=== PATIENT | female | born 1950 | race Caucasian/White ===

== ENCOUNTER → 2016-09-28 | Outpatient (CLI) | payer OTHER ==
[~2016-09-28] VITALS: Ht 170.2 cm; Wt 73.9 kg
[~2016-09-28] MED LIST: BISM262T3 PO; DIPH25CA65 PO; IBUP-103 PO; MULT-506 PO; PSEU30TA20 PO; RXC5 PO; TRAM-10 PO
[2016-09-28 13:45] VITALS: Ht 170.2 cm; Wt 73.9 kg
--- NOTE | 2016-09-28 14:07 | PAT Medication Instructions ---
Service Date Sep 28, 2016. Current Home Medication List Pseudoephedrine (Sudafed), 30 MG PO DAILY PRN for PRN Tramadol (Ultram), 50-100 MG PO Q8H PRN for Pain Medication Instructions For Your Scheduled Surgery - Hold the following medications the morning of surgery: Pseudoephedrine (Sudafed), 30 MG PO DAILY PRN for PRN - Take the following medications the morning of surgery with a sip of water OTHERWISE NOTHING TO EAT OR DRINK AFTER MIDNIGHT: Tramadol (Ultram), 50-100 MG PO Q8H PRN for Pain (may take up to 4 hours prior to surgery if needed) If you have any questions please call us at [phone] or [phone] or [phone]
[2016-09-28 15:03] LABS: BASO % 0.6 %; BASO ABS # 0.04 K/uL (0-0.2); COMPLETE YES; EOS % 4.3 %; HEMATOCRIT 40.3 % (37-47); IG% 0.1 %; LYMPH % 26.7 %; LYMPH ABS # 1.78 K/uL (1.2-3.4); MEAN CELL VOLUME 86.7 fL (80-100); MEAN CORPUSCULAR HEMOGLOBIN 28.6 pg (25-34); MEAN PLATELET VOLUME 9.7 fL (7.4-10.4); MONO % 7.5 %; NEUT % 60.8 %; PLATELET COUNT 281 K/uL (130-400); RED BLOOD COUNT 4.65 M/uL (4.2-5.4); WHITE BLOOD COUNT 6.67 K/uL (4.8-10.8)
[2016-09-28 15:08] LABS: URINE APPEARANCE CLEAR (CLEAR); URINE BILIRUBIN NEG (NEG); URINE COLOR YELLOW; URINE EPITHELIAL CELL AUTO >30 /lpf (0-5); URINE NITRITE NEG (NEG); URINE PH 5.5 (4.5-7.5); URINE SPECIFIC GRAVITY 1.018 (1.000-1.030); UROBILINOGEN NEG (NEG)
[2016-09-28 15:11] LABS: BUN/CREATININE RATIO 12.3 (10-20); CALCIUM 9.3 mg/dl (8.5-10.1); CREATININE 0.87 mg/dl (0.60-1.20); POTASSIUM 3.8 mmol/L (3.5-5.1)
[2016-09-28 15:22] LABS: MANUAL MICROSCOPIC REQUIRED? NO; REVIEW REQ? NO
--- NOTE | 2016-10-14 07:30 | History & Physical Bridge Note ---
H&P Re-Evaluation Bridge Note: I have examined the patient, reviewed the History & Physical and in the interval since the performance of the History & Physical I have noted the following changes of clinical significance: No changes noted
== END ==
LOC: C.LAB 08:00 → EDSTATUS 10-14 12:15
PROVIDERS: ATTEND Orthopaedic Surgery Orthopaedic Surgery of the Spine
DX: Z01.810 Encounter for preprocedural cardiovascular examination (principal)

== ENCOUNTER 2017-03-03 05:53 | Inpatient (IN) | payer OTHER ==
[2017-01-25 12:06] VITALS: BMI 25.0
--- NOTE | 2017-01-25 12:29 | PAT Medication Instructions ---
Service Date Jan 25, 2017. Current Home Medication List Bismuth Subsalicylate (Pepto Bismol Chew Tab), 1 TAB PO PRN Diphenhydramine Hcl (Benadryl Allergy), 50 CAP PO PRN Multivitamin (Multivitamin), 2 TAB PO QPM Pseudoephedrine (Sudafed), 30 MG PO DAILY PRN for PRN Tramadol (Ultram), 50 MG PO Q8H PRN for Pain Medication Instructions For Your Scheduled Surgery - Hold the following medications the morning of surgery: Bismuth Subsalicylate (Pepto Bismol Chew Tab), 1 TAB PO PRN Diphenhydramine Hcl (Benadryl Allergy), 50 CAP PO PRN Pseudoephedrine (Sudafed), 30 MG PO DAILY PRN for PRN - Take the following medications the morning of surgery with a sip of water: Tramadol (Ultram), 50 MG PO Q8H PRN for Pain (okay to take up to 4 hours prior to surgery if needed) - Take the following medications as scheduled the night before surgery: Tramadol (Ultram), 50 MG PO Q8H PRN for Pain (if needed) Bismuth Subsalicylate (Pepto Bismol Chew Tab), 1 TAB PO PRN (if needed) Diphenhydramine Hcl (Benadryl Allergy), 50 CAP PO PRN (if needed) Multivitamin (Multivitamin), 2 TAB PO QPM Pseudoephedrine (Sudafed), 30 MG PO DAILY PRN for PRN (if needed) If you have any questions please call us at [phone] or [phone] or [phone]
[2017-01-25 13:08] LABS: HEMATOCRIT 45.9 % (37-47); MEAN CELL VOLUME 89.6 fL (80-100); MEAN CORPUSCULAR HEMOGLOBIN 28.3 pg (25-34); MEAN CORPUSCULAR HGB CONC 31.6 g/dl (32-36); MEAN PLATELET VOLUME 9.8 fL (7.4-10.4); PLATELET COUNT 330 K/uL (130-400); RED BLOOD COUNT 5.12 M/uL (4.2-5.4); WHITE BLOOD COUNT 7.93 K/uL (4.8-10.8)
[2017-01-25 13:18] LABS: BUN/CREATININE RATIO 12.5 (10-20); CALCIUM 9.3 mg/dl (8.5-10.1); CREATININE 0.81 mg/dl (0.60-1.20); POTASSIUM 4.2 mmol/L (3.5-5.1)
[2017-01-25 13:37] LABS: URINE APPEARANCE CLEAR (CLEAR); URINE BILIRUBIN NEG (NEG); URINE COLOR DK YELLOW; URINE EPITHELIAL CELL AUTO >30 /lpf (0-5); URINE NITRITE NEG (NEG); URINE SPECIFIC GRAVITY 1.027 (1.000-1.030); UROBILINOGEN NEG (NEG)
[2017-01-25 13:47] LABS: MANUAL MICROSCOPIC REQUIRED? NO; REVIEW REQ? YES
[2017-01-25 14:21] LABS: BASO % 0.6 %; BASO ABS # 0.05 K/uL (0-0.2); COMPLETE YES; IG% 0.1 %; LYMPH % 36.4 %; LYMPH ABS # 2.89 K/uL (1.2-3.4); MONO % 8.8 %; NEUT % 50.1 %
[~2017-03-03] VITALS: Ht 170.2 cm; Wt 72.3 kg
[2017-03-03] VITALS (7 sets, daily range): BP systolic 114–130; BP diastolic 66–90; PULSE 67–103; TEMP 36.4–36.9; O2SAT 91–99; Ht 170.2 cm; Wt 72.3 kg
[~2017-03-03 05:53] MED LIST changes: -IBUP-103 PO; -RXC5 PO
[2017-03-03] MEDS ORDERED: LACTATED RINGER'S 1000ML 1,000 ML IV SCH (06:00)
[2017-03-03] MEDS ORDERED: CEFAZOLIN 1000MG/55 ML D5W IV SCH (06:00)
[2017-03-03] MEDS ORDERED: FENTANYL CITRATE INJ 50 MCG/1 ML 2 ML VIAL ONE ×4 (06:40→09:13)
[2017-03-03] MEDS ORDERED: MIDAZOLAM HCL 1 MG/ML 2ML VIAL ONE (06:40)
[2017-03-03] MEDS ORDERED: BUPIVACAINE/EPINEPHRINE 0.5% MPF 1:200,000 30 ML VIAL ONE (07:06)
[2017-03-03] MEDS ORDERED: BACITRACIN 50000 UNIT VIAL ONE (07:06)
--- NOTE | 2017-03-03 07:35 | History and Physical ---
History & Physical Date Mar 03, 2017. Chief Complaint Back and leg pain History of Present Illness The patient is a 66 year old female with complaints of chronic back and leg pain Additional History Hepatic Disease: No Endocrine Disorder: No Kidney Disease: No Hypertension: No Heart Disease: No Bleeding Tendencies: No Infectious Diseases: No Allergies Coded Allergies: Adhesives (Verified Allergy, Unknown, SKIN Tears with tape, 03/03/17) Home Medications Scheduled Bismuth Subsalicylate (Pepto Bismol Chew Tab), 1 TAB PO PRN Diphenhydramine Hcl (Benadryl Allergy), 50 MG PO PRN Multivitamin (Multivitamin), 2 TAB PO QPM Scheduled PRN Pseudoephedrine (Sudafed), 30 MG PO DAILY PRN for PRN Tramadol (Ultram), 50 MG PO Q8H PRN for Pain Physical Examination Skin: warm/dry, no rash Eyes: normal inspection, EOMI, sclerae normal ENT: normal ENT inspection, pharynx normal Head: normocephalic, atraumatic Neck: supple, no adenopathy, trachea midline Respiratory/Chest: lungs clear, normal breath sounds, no respiratory distress Cardiovascular: regular rate, rhythm, no edema, no murmur Abdomen / GI: normal bowel sounds, non tender Back: normal inspection Extremities: normal inspection, normal range of motion Neurologic/Psych: no motor/sensory deficits, alert, normal reflexes, oriented x 3 Diagnosis Lumbar spinal stenosis Plan of Treatment Decompression fusion L5-S1
[2017-03-03] MEDS ORDERED: EpHEDrine SULFATE INJ 50 MG/ML AMP IV PRN (07:45)
[2017-03-03] MEDS ORDERED: HYDROmorphone INJ 1 MG/ML SYR IV PRN (07:45)
[2017-03-03] MEDS ORDERED: FENTANYL CITRATE INJ 50 MCG/1 ML 2 ML VIAL IV PRN (07:45)
[2017-03-03] MEDS ORDERED: ATROPINE SULFATE 0.1 MG/ML 5ML SYR IV PRN (07:45)
[2017-03-03] MEDS ORDERED: ONDANSETRON INJ 2 MG/ML 2 ML VIAL IV PRN ×2 (07:45→09:30)
[2017-03-03] MEDS ORDERED: HYDROmorphone INJ 2 MG/ML SYR/VIAL ONE ×2 (08:05→09:25)
[2017-03-03] MEDS ORDERED: ESMOLOL HCL 10 MG/ML 10 ML VIAL ONE (08:34)
[2017-03-03] MEDS ORDERED: PROPOFOL IV EMULSION 10 MG/ML 20 ML VIAL IV ONE (08:34)
[2017-03-03] MEDS ORDERED: LIDOCAINE HCL 2% 2 ML VIAL (20MG/ML) ONE (08:34)
[2017-03-03] MEDS ORDERED: METOPROLOL TARTRATE 1 MG/ML VIAL ONE (08:34)
[2017-03-03] MEDS ORDERED: ONDANSETRON INJ 2 MG/ML 2 ML VIAL ONE ×2 (08:34→09:26)
[2017-03-03] MEDS ORDERED: RANITIDINE HCL 25 MG/ML INJ ONE (08:34)
[2017-03-03] MEDS: LACTATED RINGER'S 1000ML 1,000 ML IV SCH ×4 (09:24→22:36)
[2017-03-03] MEDS ORDERED: SODIUM CHLORIDE 0.9% 1000ML 1,000 ML IV SCH (09:24)
[2017-03-03] MEDS ORDERED: EpHEDrine SULFATE 50MG/5ML SYR ONE (09:26)
[2017-03-03] MEDS ORDERED: GLYCOPYRROLATE INJ 0.2 MG/ML VIAL ONE (09:26)
[2017-03-03] MEDS ORDERED: NEOSTIGMINE METHYLSULFATE 1 MG/ML 10ML VIAL ONE (09:26)
--- NOTE | 2017-03-03 09:27 | DIAGNOSTIC IMAGING REPORT ---
LUMBAR SPINE, INTRAOPERATIVE FLUOROSCOPY HISTORY: L5-S1 decompression and fusion. FLUOROSCOPY TIME: 18 seconds. FINDINGS: Intraoperative fluoroscopy was provided for the lumbar spine. 2 fluoroscopic spot images were obtained. Posterior decompression fusion at L5-S1 with pedicle screws and rods. The hardware appears intact. IMPRESSION: Fluoroscopy provided for a L5-S1 posterior decompression and fusion. Electronically signed by: Pan Childers M.D. 03/03/2017 9:26 AM Dictated Date/Time: 03/03/2017 9:25 AM
[2017-03-03] MEDS ORDERED: DO NOT ADMINISTER PNEUMOCOCCAL VACCINE PRN ×2 (09:30)
[2017-03-03] MEDS ORDERED: HYDROmorphone HCL 0.5MG/ML 50 ML CASSETTE IV PRN (09:30)
[2017-03-03] MEDS ORDERED: TRAMADOL HCL 50 MG TAB PO PRN (09:30)
[2017-03-03] MEDS ORDERED: hydrOXYzine HCL 25 MG TAB PO PRN (09:30)
[2017-03-03] MEDS ORDERED: LORAZEPAM INJ 0.5 MG in SYRINGE 0 ML IV PRN (09:30)
[2017-03-03] MEDS ORDERED: SOD PHOSPHATE/SOD BIPHOSPHATE ENEMA 132 ML BTL PR PRN (09:30)
[2017-03-03] MEDS ORDERED: ACETAMINOPHEN 500 MG TAB PO PRN (09:30)
[2017-03-03] MEDS ORDERED: MAGNESIUM HYDROXIDE SUSP 30 ML UDC PO PRN (09:30)
[2017-03-03] MEDS ORDERED: FLOSEAL HEMOSTATIC MATRIX 10ML TOP ONE (09:30)
[2017-03-03] MEDS ORDERED: ACETAMINOPHEN IV 100 ML IV PRN (09:30)
[2017-03-03] MEDS ORDERED: METOCLOPRAMIDE HCL INJ 5 MG/ML 2 ML VIAL IV PRN (09:30)
[2017-03-03] MEDS ORDERED: PROMETHAZINE HCL INJ 12.5 MG in SODIUM CHLORIDE 0.9% 50ML 50 ML IV PRN (09:30)
[2017-03-03] MEDS ORDERED: NALOXONE HCL 0.4 MG/1 ML VIAL/CARP IV PRN ×2 (09:30)
[2017-03-03] MEDS ORDERED: BISMUTH SUBSALICYLATE 262 MG CHEW PO PRN (09:30)
[2017-03-03] MEDS ORDERED: BISACODYL 10 MG SUPP PR PRN (09:30)
[2017-03-03] MEDS ORDERED: FAMOTIDINE 20 MG TAB PO PRN (09:30)
[2017-03-03] MEDS ORDERED: ALUMINUM/MAGNESIUM SUSP 30 ML UDC PO PRN (09:30)
[2017-03-03] MEDS ORDERED: DO NOT ADMINISTER FLU VACCINE PRN ×3 (09:30)
--- NOTE | 2017-03-03 09:30 | [facility] Operative Report ---
Operative Report Operative Date Mar 03, 2017. Pre-Operative Diagnosis Spinal Stenosis Post-Operative Diagnosis Spinal Stenosis Procedure(s) Performed #1 revision decompression A facetectomy foraminotomies L5-S1. #2 posterior spinal fusion L5-S1. #3 placement posterior instrumentation L5-S1. #4 interbody fusion L5-S1. #5 placement peek cage 10 x 22 mm L5-S1. 6 placement of locally harvested morcellized autograft in the posterior lateral gutters #7 placement of ostial amp in the interbody space and posterior lateral gutters. Surgeon Dr. Rogers Transmission Calibration Engineer Surgeon(s) Alexis Rice PA-C Estimated Blood Loss 125ML Findings Severe spinal stenosis Specimens none per surgeon Description of Procedure Patient was met with preoperatively case discussed all questions are dressed. After informed consent patient was taken to the operative suite underwent intubation placed in a prone position the Chaz table on top of the Oseas frame. All bony promises were well padded and the eyes were inspected to ensure there is no external pressure placed upon them. This point the lumbar spine was prepped and draped in the normal sterile fashion. Sharp dissection with the assistance of Bovie cautery was performed onto an exposing the remaining lamina and transverse processes of L5 and the sacral alar bilaterally. From a caudal to cephalad fashion revision complete laminectomy of L5 was performed including medial facetectomy foraminotomies addressing significant lateral recess stenosis and foraminal disease on the right. Pedicle screws then placed in L5 and S1 levels bilaterally with the assistance of fluoroscopy the purposes tae provisionally placed. Through a transforaminal approach on the right complete discectomy of L5-S1 was performed and plate created to subcortical bleeding bone and a 10 x 22 mm peek cage filled with ostial amp tapped into position. The rods were then locked and final position bilaterally. The transverse processes of L5 and sacral alar burred to subcortical bleeding bone. 15 round MARIAH drain inserted. Incision then closed with 1 Vicryl in the fascia 2-0 Vicryl subcutaneously or 0 Monocryl for final skin closure Steri-Strip sterile dressing placed patient we can take PACU stable condition. Please note Cristian record was present throughout the entire procedure involved in patient positioning complex portions of the surgery and final skin closure. I attest to the content of the Intraoperative Record and any orders documented therein. Any exceptions are noted below.
[2017-03-03] MEDS ORDERED: HYDROmorphone HCL 0.5MG/ML 50 ML CASSETTE ONE (09:50)
--- NOTE | 2017-03-03 10:28 | Anesthesiology Progress Note ---
Anesthesia Post Op Note Date & Time Mar 03, 2017 at 10:27 Vital Signs Pain Intensity: 0 Vital Signs Past 12 Hours Date Time Temp Pulse Resp B/P (MAP) Pulse Ox O2 Delivery O2 Flow Rate FiO2 03/03/17 10:20 85 15 124/68 98 Nasal Cannula 4 03/03/17 10:10 84 14 122/66 98 Nasal Cannula 4 03/03/17 10:00 87 17 130/66 98 Oxymask 10 03/03/17 09:50 85 19 125/66 98 Oxymask 10 03/03/17 09:42 37.1 95 11 133/73 98 Oxymask 10 03/03/17 06:10 36.9 98 20 118/90 99 Room Air Notes Mental Status: alert / awake / arousable, participated in evaluation Pt Amnestic to Procedure: Yes Nausea / Vomiting: adequately controlled Pain: adequately controlled Airway Patency, RR, SpO2: stable & adequate BP & HR: stable & adequate Hydration State: stable & adequate Anesthetic Complications: no major complications apparent
[2017-03-03] MEDS ORDERED: ROCURONIUM BROMIDE 10 MG/ML 5 ML VIAL IV ONE (10:38)
[2017-03-03] MEDS: DEXAMETHASONE INJ 6 MG in SYRINGE 0 ML IV SCH ×2 (13:51→22:37)
[2017-03-03] MEDS: CEFAZOLIN IV 2,000 MG in DEXTROSE 5% 50ML 50 ML IV SCH (16:23)
[2017-03-03] MEDS: DOCUSATE SODIUM/SENNA 50/8.6MG TAB PO SCH (21:29)
[2017-03-04 00:06] VITALS: BP 107/63; PULSE 94; TEMP 36.7; O2SAT 95
[2017-03-04] MEDS: CEFAZOLIN IV 2,000 MG in DEXTROSE 5% 50ML 50 ML IV SCH (00:12)
[2017-03-04 03:14] VITALS: BP 110/64; PULSE 105; TEMP 36.8; O2SAT 95
[2017-03-04] MEDS: DEXAMETHASONE INJ 6 MG in SYRINGE 0 ML IV SCH (05:56)
[2017-03-04] MEDS ORDERED: DC PCA ONE (06:00)
[2017-03-04] MEDS ORDERED: HYDROmorphone INJ 1 MG/ML SYR IV PRN (06:00)
[2017-03-04 06:15] LABS: BASO % 0.1 %; BASO ABS # 0.01 K/uL (0-0.2); COMPLETE YES; HEMATOCRIT 34.6 % (37-47); IG% 0.4 %; LYMPH % 8.6 %; LYMPH ABS # 1.37 K/uL (1.2-3.4); MEAN CORPUSCULAR HEMOGLOBIN 28.2 pg (25-34); MEAN CORPUSCULAR HGB CONC 32.1 g/dl (32-36); MEAN PLATELET VOLUME 9.5 fL (7.4-10.4); MONO % 5.2 %; NEUT % 85.7 %; PLATELET COUNT 289 K/uL (130-400); RED BLOOD COUNT 3.93 M/uL (4.2-5.4); WHITE BLOOD COUNT 15.98 K/uL (4.8-10.8)
[2017-03-04] MEDS ORDERED: RXC5 PO (06:41)
--- NOTE | 2017-03-04 06:42 | Discharge Instructions ---
Discharge Instructions Date of Service Mar 04, 2017. Admission Reason for Admission: Lumbar Spinal Stenosis Discharge Discharge Diagnosis / Problem: lumbar spinal stenosis Discharge Goals Goal(s): Improve function Activity Recommendations Activity Limitations: per Instructions/Follow-up section . Instructions / Follow-Up Instructions / Follow-Up ACTIVITY RECOMMENDATIONS: SELF CARE INSTRUCTIONS AFTER THORACIC/LUMBAR FUSIONS 1. You may walk to your tolerance. It is good exercise for your legs and back. Expect some back and intermittent leg aches and pains. 2. You may perform "counter-top" level activities (make a sandwich, dewayne with a project, etc.). 3. No bending or lifting of more than 10 pounds or back twisting of any nature (roll like a log when turning in bed). 4. You may ride in a car for 20-30 minutes at a time. No driving until after your first visit with your doctor. 5. Frequent changes of position and restricting sitting to 30 minutes at a time will help limit the amount of back spasms and stiffness you may experience. 6. You may discontinue the use of ambulatory aids (cane, crutches, etc.) once your strength and confidence allow. 7. You may coin teller the shower and let water strike your incision when you arrive home at least once daily. Do not take a tub bath, sit in a hot tub or go into a swimming pool until after your first recheck in the office. SPECIAL CARE INSTRUCTIONS: VERY IMPORTANT TO READ AND REVIEW A. Your surgical incision has been closed with a cosmetic suture under the skin that will dissolve in about 6 weeks. In 14 days, you can use a pair of clean scissors and cut the suture that is left outside of the skin at the ends of your incision. 1. The small skin tapes can be removed 7 days after surgery if they have not fallen off by that point. 2. You may keep the wound open to air as much as possible to promote healing after post-op day number 5 unless told otherwise by your doctor. 3. If you think the wound looks like it is becoming infected (redness or worsening drainage) and/or you are experiencing fever, chill or worsening back pain and muscle spasms, contact the office so that we may evaluate you as soon as possible. B. Complications are uncommon, but please contact us if you have any signs or symptoms of: 1. wound infection (fever higher than 102.5 degrees F, redness, separation of wound, drainage, or increasing pain from the incision) 2. blood clots in legs (pain, swelling, redness and warmth in legs) 3. urinary tract infection (fever higher than 102.5 degrees F, burning upon urination or increased frequency of urination) 4. nerve problems (inability to walk on your toes or heels, numbness, loss of bowel or bladder control) 5. any other symptoms that concern you C. Please call the office at if you have any concerns or questions about your operation or recovery. D. No smoking! Smoking drastically decreases the chance of a solid fusion. E. Do not take any anti-inflammatory medications (Indocin, Advil, Motrin, Aspirin, Naprosyn, etc.) as these may inhibit the chance of a solid fusion. Tylenol is okay to take for pain. MANAGING PAIN AFTER SPINAL SURGERY 1. Narcotic medication is intended for short-term use and will be provided for surgical pain. Surgical pain usually lasts for a period of 4-6 weeks. Narcotic medication includes Percocet, Vicodin, Darvocet, Tylenol #3 or Lortab. 2. Longer-term pain is more appropriately treated with non-narcotic medication such as Tylenol ES. 3. Muscle spasm is not appropriately treated with narcotics. Muscle relaxers such as Soma, Flexeril or Skelaxin can be used along with Tylenol ES. 4. Remember that we all live with some "aches and pains". This is not unusual or uncommon after an injury or as we get older. a. Back pain is expected and may include muscle spasms for 4 to 6 weeks after surgery. The pain should gradually improve. If the pain worsens for no apparent reason, please contact the office. b. Intermittent leg pain may also be experienced and should not be concerned about unless it worsens for no apparent reason. If so, please contact the office. 5. We will provide appropriate medication within the normal guidelines of their prescribed use. We will also be very cautious and aware of potential abuse and extended duration of patients' medication needs. a. Pain medications are for your comfort and to assist with sleep and rest so that the tissue can heal. They are not provided in order to return to normal activity and should not be used through the day. To do so or worsening pain at night can result from ongoing tissue damage and development of tolerance to the prescribed medicine. 6. Please allow 2-3 days to process refills. Prescriptions will not be mailed but must be picked up at the office. FOLLOW UP VISIT: Keep your scheduled follow-up appointment. Any questions, please call the office at . Current Hospital Diet Patient's current hospital diet: Regular Diet Discharge Diet Recommended Diet: Regular Diet Procedures Procedures Performed: #1 revision decompression A facetectomy foraminotomies L5-S1. #2 posterior spinal fusion L5-S1. #3 placement posterior instrumentation L5-S1. #4 interbody fusion L5-S1. #5 placement peek cage 10 x 22 mm L5-S1. 6 placement of locally harvested morcellized autograft in the posterior lateral gutters #7 placement of ostial amp in the interbody space and posterior lateral gutters. Pending Studies Studies pending at discharge: no Medical Emergencies . Who to Call and When: Medical Emergencies: If at any time you feel your situation is an emergency, please call 911 immediately. . Non-Emergent Contact Non-Emergency issues call your: Primary Care Provider . "Provider Documentation" section prepared by Alex Rogers. . VTE Core Measure Inpt VTE Proph given/why not?: Lisa Watt, NAH[facility]
[2017-03-04 06:56] LABS: BUN/CREATININE RATIO 15.1 (10-20); CALCIUM 9.3 mg/dl (8.5-10.1); CREATININE 0.71 mg/dl (0.60-1.20); POTASSIUM 4.1 mmol/L (3.5-5.1)
[2017-03-04] MEDS ORDERED: NURSING DECISION MEDICATION ORDER SCH (07:15)
[2017-03-04 07:45] VITALS: O2SAT 91
[2017-03-04] MEDS: LACTATED RINGER'S 1000ML 1,000 ML IV SCH (07:50)
[2017-03-04] MEDS: HYDROmorphone INJ 0.5 MG/0.5 ML SYR IV PRN ×3 (07:55→15:58)
[2017-03-04 08:06] VITALS: BP 122/72; PULSE 91; TEMP 36.8; O2SAT 91
--- NOTE | 2017-03-04 08:32 | Progress Note ---
Progress Note Date of Service Mar 04, 2017. Progress Note Patient's back pain is controlled. Leg pain improved. Vital signs are stable. Exam she is good strength testing. Assessment status post lumbar depression fusion replant this time initiate physical therapy today advance her bowel regiment anticipate home Monday or Monday.
[2017-03-04] MEDS ORDERED: NURSING VERBAL MED ORDER ONE (08:45)
[2017-03-04] MEDS ORDERED: RIZATRIPTAN BENZ (MAXALT-MLT) 10 MG TAB SL ONE (09:00)
[2017-03-04 15:01] VITALS: BP 107/67; PULSE 98; TEMP 37; O2SAT 93
[2017-03-04] MEDS: DOCUSATE SODIUM/SENNA 50/8.6MG TAB PO SCH (20:32)
[2017-03-04] MEDS: OXYCODONE HCL IR 5 MG TAB (IMMEDIATE RELEASE) PO PRN (21:28)
[2017-03-05 00:05] VITALS: BP 127/70; PULSE 90; TEMP 36.8; O2SAT 94
[2017-03-05] MEDS: LORAZEPAM 0.5 MG TAB PO PRN (02:02)
[2017-03-05] MEDS: POLYETHYLENE (MIRALAX) 17 GM PACK PO SCH ×2 (05:17→12:07)
[2017-03-05] MEDS: OXYCODONE HCL IR 5 MG TAB (IMMEDIATE RELEASE) PO PRN ×4 (05:18→21:10)
[2017-03-05 06:11] VITALS: BP 130/79; PULSE 73; TEMP 36.7; O2SAT 92
--- NOTE | 2017-03-05 13:28 | Progress Note ---
Progress Note Date of Service Mar 05, 2017. Progress Note Pain is well-controlled. She seemed waiting without difficulty. Vital signs are stable. MARIAH drain decreasing probably. Assessment status post lumbar decompression fusion replant this time will continue physical therapy monitor MARIAH output anticipate home tomorrow.
[2017-03-05 15:12] VITALS: BP 121/74; PULSE 91; TEMP 36.8; O2SAT 91
[2017-03-05] MEDS ORDERED: NURSING VERBAL MED ORDER ONE (16:00)
[2017-03-05] MEDS: DOCUSATE SODIUM/SENNA 50/8.6MG TAB PO SCH (21:08)
[2017-03-05 22:59] VITALS: BP 121/77; PULSE 87; TEMP 37; O2SAT 91
[2017-03-06] MEDS: OXYCODONE HCL IR 5 MG TAB (IMMEDIATE RELEASE) PO PRN ×3 (01:17→11:30)
[2017-03-06 06:37] VITALS: BP 131/84; PULSE 89; TEMP 36.5; O2SAT 93
[2017-03-06] MEDS: LORAZEPAM 0.5 MG TAB PO PRN (06:47)
--- NOTE | 2017-03-06 09:58 | Anesthesiology Progress Note ---
Anesthesia Post Op Note Date & Time Mar 06, 2017 at 09:57 Vital Signs Vital Signs Past 12 Hours Date Time Temp Pulse Resp B/P (MAP) Pulse Ox O2 Delivery O2 Flow Rate FiO2 03/06/17 07:10 Room Air 03/06/17 06:37 36.5 89 16 131/84 (100) 93 Room Air 03/06/17 00:15 Room Air 03/05/17 22:59 37.0 87 15 121/77 (92) 91 Room Air Notes Mental Status: alert / awake / arousable, participated in evaluation Pt Amnestic to Procedure: Yes Nausea / Vomiting: adequately controlled Pain: adequately controlled Airway Patency, RR, SpO2: stable & adequate BP & HR: stable & adequate Hydration State: stable & adequate Anesthetic Complications: no major complications apparent
[2017-03-06 11:34] VITALS: BP 131/84; PULSE 89; TEMP 36.5; O2SAT 93
--- NOTE | 2017-03-06 13:00 | Discharge Summary ---
Orthopedic Discharge Summary Admission Date/Reason Mar 03, 2017 at 07:45 Lumbar Spinal Stenosis. Discharge Date/Disposition Mar 06, 2017 Home Diagnosis Principal Diagnosis: Lumbar spinal stenosis Admission Physical Exam As per Admitting History & Physical. Hospital Course Patient underwent lumbar decompression fusion tolerated this well as taken to the orthopedic floor postoperatively. Postoperative day #1 she was up and amatory progressed through postop day #2 substernally postop day #3 MARIAH drain decreased improperly pain well controlled on discharge home. Discharge orders and instructions found in the chart for further review. Discharge Instructions Please refer to the electronic Patient Visit Report (Discharge Instructions) for additional information.
== END 2017-03-06 13:40 | disposition home or self-care (01) | DRG 460 ==
LOC: C.ACU 05:53 → C.3E 07:45 → ENRESERV 10:22
PROVIDERS: ADMIT Orthopaedic Surgery Orthopaedic Surgery of the Spine; ATTEND Orthopaedic Surgery Orthopaedic Surgery of the Spine
PROC: 0ST40ZZ Resection of Lumbosacral Disc, Open Approach (ICD-10-PCS; principal; 2017-03-03 07:45)
PROC: 0SG3071 Fusion of Lumbosacral Joint with Autologous Tissue Substitute, Posterior Approach, Posterior Column, Open Approach (ICD-10-PCS; principal; 2017-03-03 07:45)
PROC: 0SG30AJ Fusion of Lumbosacral Joint with Interbody Fusion Device, Posterior Approach, Anterior Column, Open Approach (ICD-10-PCS; principal; 2017-03-03 07:45)
DX: M48.06 Spinal stenosis, lumbar region (principal)

== ENCOUNTER → 2017-09-20 | Outpatient (CLI) | payer OTHER ==
[~2017-09-20] MED LIST changes: +RXC5 PO
[2017-09-20 14:57] LABS: BASO % 0.5 %; BASO ABS # 0.04 K/uL (0-0.2); EOS % 4.7 %; EOS ABS # 0.38 K/uL (0-0.5); HEMATOCRIT 44.7 % (37-47); HEMOGLOBIN 14.7 g/dL (12.0-16.0); IG# 0.02 K/uL (0.00-0.02); LYMPH % 35.1 %; LYMPH ABS # 2.82 K/uL (1.2-3.4); MEAN CELL VOLUME 88.3 fL (80-100); MEAN CORPUSCULAR HEMOGLOBIN 29.1 pg (25-34); MEAN CORPUSCULAR HGB CONC 32.9 g/dl (32-36); MEAN PLATELET VOLUME 9.9 fL (7.4-10.4); MONO % 9.3 %; MONO ABS # 0.75 K/uL (0.11-0.59); NEUT % 50.2 %; NEUT ABS # 4.03 K/uL (1.4-6.5); PLATELET COUNT 318 K/uL (130-400); RED CELL DISTRIBUTION WIDTH CV 13.8 % (11.5-14.5); RED CELL DISTRIBUTION WIDTH SD 44.4 fL (36.4-46.3); WHITE BLOOD COUNT 8.04 K/uL (4.8-10.8)
[2017-09-20 15:31] LABS: ALBUMIN 3.6 gm/dl (3.4-5.0); ALT/SGPT 50 U/L (12-78); AST/SGOT 32 U/L (15-37); BLOOD UREA NITROGEN 14 mg/dl (7-18); CALCIUM 9.2 mg/dl (8.5-10.1); CARBON DIOXIDE 25 mmol/L (21-32); CREATININE 0.82 mg/dl (0.60-1.20); GLUCOSE 89 mg/dl (70-99); POTASSIUM 4.2 mmol/L (3.5-5.1); SODIUM 142 mmol/L (136-145)
[2017-09-20 15:35] LABS: ALKALINE PHOSPHATASE 98 U/L (45-117); TOTAL PROTEIN 7.9 gm/dl (6.4-8.2); TRANSFERRIN 281 mg/dl (200-360)
== END | disposition home or self-care (01) ==
LOC: C.LAB1850 14:21
PROVIDERS: ATTEND Internal Medicine
DX: R53.83 Other fatigue (principal); E55.9 Vitamin D deficiency, unspecified